=== PATIENT | female | born 1965 | race Caucasian/White ===

== ENCOUNTER 2018-01-07 14:02 | Day surgery (SDC) | payer OTHER ==
[2018-01-07] MEDS ORDERED: PROPOFOL 60 ML (15:54)
== END 2018-01-07 16:47 | disposition home or self-care (01) ==
LOC: GIL 14:02
DX: Z12.11 Encounter for screening for malignant neoplasm of colon (principal); D12.3 Benign neoplasm of transverse colon; K57.90 Diverticulosis of intestine, part unspecified, without perforation or abscess without bleeding
CPT/HCPCS: 45380; 88305